=== PATIENT | male | born 1950 | race Caucasian/White ===

== ENCOUNTER 2019-12-31 06:25 | Inpatient (IN) | payer OTHER ==
[~2019-12-31] VITALS: Ht 170.2 cm; Wt 117.0 kg
[~2019-12-31 06:25] MED LIST: ALEVE220 MG PO; APAP500 PO; CALCIUM 600 WI1 EAC2 PO; CELEXA20 MG PO; CENTRUM SILVER1 EAC2 PO; COLACE100 MG PO; GLUCOPHAGE850 MG PO; GLUCOTROL5 MG PO; INVOKANA100 MG PO; JANUVIA 50 MG T50 M1 PO; KEFLEX500 MG PO; KLOR-CON 1010 MEQ PO; LASIX 20 MG TAB20 MG PO; LISINOPRIL20 MG PO; METAMUCIL WAFER1 PKT PO; NORCO 5-325 TA1 EACH PO; NORVASC5 MG PO; ONGLYZA5 MG PO; PERCOCET PO; VITAMINC500 PO; XARELTO10 MG PO
[2020-02-08 13:38] LABS: ABSOLUTE BASOPHILS 0.1 thou/uL (0.0-0.2); ABSOLUTE EOSINOPHILS 0.3 thou/uL (0.0-0.7); ABSOLUTE LYMPHOCYTES 3.3 thou/uL (0.8-5.3); ABSOLUTE MONOCYTES 0.5 thou/uL (0.0-1.2); ABSOLUTE NEUTROPHILS 4.8 thou/uL (1.6-8.1); BASOPHILS 0.7 %; EOSINOPHILS 3.3 %; HEMATOCRIT 40.9 % (42.0-52.0); HEMOGLOBIN 14.3 gm/dL (14.0-18.0); LYMPHOCYTES 37.1 %; MCH 30.3 pg (26.0-34.0); MCV 86.6 fL (80.0-100.0); MONOCYTES 5.4 %; MPV 7.6 fl. (7.2-11.1); NUCLEATED RBCS 0 /100WBC; PLATELET COUNT* 273 thou/uL (150-400); POLYS 53.5 %; RBC 4.72 mil/uL (4.50-6.00); RDW-CV 13.2 % (10.5-14.5)
[2020-02-08 13:46] LABS: APTT 27.9 Seconds (25.0-31.3)
[2020-02-08 13:57] LABS: ALBUMIN 3.5 g/dL (3.4-5.0); CALCIUM 9.1 mg/dL (8.5-10.1); CREATININE 1.4 mg/dL (0.6-1.3); POTASSIUM 4.6 mmol/L (3.5-5.1); TOTAL BILIRUBIN 0.4 mg/dL (<0.1-1.0); TOTAL PROTEIN 6.3 g/dL (6.4-8.2)
--- NOTE | 2020-02-08 14:12 | EKG ---
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 02/08/20 1410 1346 1346 Eddy Ramos MD, [facility] /EPI
[2020-02-08] MEDS ORDERED: GLIPIZIDE 10 MG10 MG PO (15:01)
[2020-02-08] MEDS ORDERED: CELEXA40 MG PO (15:01)
[2020-02-08] MEDS ORDERED: JANUVIA100 MG PO (15:03)
[2020-02-08] MEDS ORDERED: FLOMAX0.4 MG PO (15:04)
[2020-02-08 15:16] LABS: ESR (SEDRATE) 13 mm/hr (0-20)
[2020-02-09 02:08] LABS: GLYCOHEMOGLOBIN (HGB A1C) 6.8 % (4.8-5.6)
[2020-02-11 07:00] VITALS: BP 147/75
[2020-02-11 11:20] VITALS: BP 102/49
[2020-02-11 16:00] VITALS: BP 142/70
--- NOTE | 2020-02-11 16:32 | NUR ---
PATIENT ADMITTED FROM SURGERY THIS AFTERNOON. ALERT AND ORIENTED X 4. REFUSING ANY PAIN MEDICATION STATING HIS PAIN IS UNDER CONTROL. AWAITING PATIENT TO VOID, WILL BLADDER SCAN PER PROTOCOL. IVF AND SCHED ABX INFUSED ORDERED. DRESSING TO RIGHT SHOULDER INTACT, POLAR DYLAN IN PLACE. REG DIET. ORIENTED TO CALL LIGHT. CALL LIGHT WITHIN REACH, WILL CONTINUE TO MONITOR.
[2020-02-12] VITALS: BP 132/64
[2020-02-12 03:45] VITALS: BP 132/66
--- NOTE | 2020-02-12 05:10 | NUR ---
PATIENT SLEPT WELL DURING THIS SHIFT. PT ASSISTED WITH REPOSITIONING. PT WITH RT ARM IN IMMOBILIZER WITH PILLOW ATTACHED. PT DENIES PAIN. PT ABLE TO MOVE FINGERS, GOOD CAP REFIL AND PULSE NOTED. PT USES CALL LIGHT FOR ASSISTANCE TO VOID PER URINAL. PT VOIDS YELLOW URINE. PT WITH ABDOMINAL RASH OPEN TO AIR. PT ON O2 @ 3 LITERS PER NASAL CANNULA AND CAPNO. CAPNO DID NOT ALARM DURING THIS SHIFT. PT WITH FLUIDS/ANTIBIOTIC INFUSING PER DR ORDER. PT HAS DEVIKA HOSE AND FOOT PUMPS. PT WITH POLAR PACK ON RT SHOULDER. DSG C/D/I. FREQUENTLY USED ITEMS AND CALL LIGHT WITHIN REACH. SIDERAILS UPX3 AND BED ALARM ON. WILL CONTINUE TO MONITOR.
[2020-02-12 05:51] LABS: HEMOGLOBIN 11.9 gm/dL (14.0-18.0)
[2020-02-12 06:02] LABS: ALBUMIN 2.8 g/dL (3.4-5.0); ANION GAP 7 mmol/L (7-16); BUN 32 mg/dL (7-18); CALCIUM 8.7 mg/dL (8.5-10.1); CHLORIDE 105 mmol/L (98-107); CHOLESTEROL 145 mg/dL (<200); CO2 27 mmol/L (21-32); CREATININE 1.6 mg/dL (0.6-1.3); GLUCOSE 72 mg/dL (70-99); HDL CHOLESTEROL 37 mg/dL (>40); LDL CHOLESTEROL 94 mg/dL (<100); MAGNESIUM 1.7 mg/dL (1.8-2.4); PHOSPHORUS* 3.2 mg/dL (2.5-4.9); POTASSIUM 4.4 mmol/L (3.5-5.1); SODIUM 139 mmol/L (136-145); TC:HDL 3.9 Ratio (Not establshd); TRIGLYCERIDE 74 mg/dL (<150); VLDL 15 mg/dL (<40)
[2020-02-12 06:03] LABS: SERUM ASSESSMENT CLEAR
[2020-02-12 08:10] VITALS: BP 131/52
[2020-02-12] MEDS ORDERED: ELIQUIS2.5 MG PO (13:38)
[2020-02-12] MEDS ORDERED: PERCOCET PO (13:40)
[2020-02-12 14:53] VITALS: BP 131/52
[2020-02-12 15:50] VITALS: BP 131/52
--- NOTE | 2020-02-12 16:29 | NUR ---
ALL DISCHARGE INSTRUCTION'S EXPLAINED TO PATIENT AND ALL QUESTIONS ANSWERED. PATIENT DISCHARGED VIA WHEELCHAIR TO PRIVATE VEHICLE. HIS WAS HERE TO DRIVE HIM HOME. ALL PERSONAL BELONGINGS SENT WITH PATIENT. HE WAS SENT HOME WITH COPY OF DISCHARGE PAPERWORK AND 2 SCRIPTS.
--- NOTE | 2020-02-14 16:44 | OP ---
[facility] [place] [place] [address] OPERATIVE REPORT Name: RIOSEDGARD Room: [address] IN M.R.#: [id number] Admission: 02/11/20 Attend Phys: Violet Benitez Discharge: 02/12/20 Date of : 50 Report #: [id number] THIS REPORT FOR: //name// cc: Cy Smith MD, Anthony MD ~ THIS REPORT FOR: //name// CC: Cy uDncan DATE OF SERVICE: 02/11/2020 PREOPERATIVE DIAGNOSIS: Severe degenerative joint disease, right shoulder. POSTOPERATIVE DIAGNOSIS: Severe degenerative joint disease, right shoulder. PROCEDURE: Right anatomic total shoulder arthroplasty. IMPLANTS: 1. Tornier Ascend Flex size 4B by 132.5-degree short humeral stem. 2. A 54 mm x 21 mm high eccentricity cobalt chromium humeral head. 3. XL 40 CortiLoc peg glenoid component. SURGEON: Darion Whalen DO PROJECT MANAGER INTERIOR DESIGN: Reinaldo Blanc DO/Yadira Mendenhall DO ANESTHESIA: General plus interscalene nerve block. FLUIDS: Crystalloid. ESTIMATED BLOOD LOSS: 150 mL. DRAINS: None. SPECIMENS: None. COMPLICATIONS: None. CONDITION: Stable. DISPOSITION: PACU to Med/Surg floor. ANTIBIOTICS: 2 grams [address]cef [address] [facility] [place] [place] [address] OPERATIVE REPORT Name: EDGARD RIOS Room: [address] IN [facility]#: [id number] Admission: 02/11/20 Attend Phys: Violet Benitez Discharge: 02/12/20 Date of : 50 Report #: [id number] INDICATIONS: The patient is a pleasant 70-year-old diabetic, male who has severe degenerative joint disease to his right shoulder, performed a total shoulder arthroplasty on his left side about 4 or 5 years ago, which he has done very well with. He is now ready to proceed with the same procedure on the right. We discussed risks, benefits and alternatives of this with him in detail. He has verbalized understanding and wished to proceed. FINDINGS: We evaluated the shoulder intraoperatively. He is noted to have advanced degenerative joint disease with complete loss of articular cartilage eburnated and inflamed-looking bone surrounding intense synovitis with a notable joint effusion. His rotator cuff is intact and looks appropriate. Bone quality is a little soft. His glenoid was concentrically worn centrally without any notable defects. DESCRIPTION OF PROCEDURE: The patient was brought to the operative suite and placed in supine position on the OR table, given the benefit of a general anesthetic. He was then positioned into a modified beach chair position utilizing a T-max bed attachment. All bony prominences were well padded. His head was secured with a foam mask. The right upper extremity was prepped and draped freely in usual sterile fashion with a chlorhexidine scrub, alcohol rinse and ChloraPrep paint. A timeout was utilized to ensure proper operative patient, procedure, and extremity. Once antibiotic administration was verified, we began making a standard 10 cm incision over the deltopectoral interval starting just lateral to the coracoid process. We proceeded with a standard deltopectoral approach, identifying the cephalic vein and mobilizing it laterally with the deltoid. We digitally released subdeltoid adhesions and placed a Garvin deltoid retractor in the subdeltoid space. We freed up the conjoined tendon and retracted it medially. We then had good exposure of the subscapularis which we split longitudinally about 1 cm medial to the lesser tuberosity. We retracted into the tendon for later repair. We then performed a biceps tenotomy and allowed it to retract. We then released inferior capsular tissue of the humeral head and neck and maximally externally rotated the arm. At this point, we had good exposure of the humeral head. We were able to dislocate it into a surgical wound. We then performed a humeral head osteotomy with a standard saw blade. This was performed at the anatomic neck. We then prepared our humerus with various reamers and broaches taking up to a size-4, which fit very snugly and had good rotational stability. At this point, we turned our attention to glenoid preparation. We circumferentially removed the labrum and placed retractors both anteriorly and posteriorly on the glenoid. We had good exposure of the glenoid. We then placed a central guidewire in the glenoid through the guide, which was set flush in the glenoid. We then reamed it appropriately and drilled it for the pegged glenoid. At this point, we cemented our final component into place cementing only the peripheral pegs and bone grafting the CortiLoc peg centrally. This had a very nice snug fit. At this point, we turned our attention back to the humerus where we used a calcar reamer and trialed with various humeral heads to determine the proper size and [address] [address] OPERATIVE REPORT Name: EDGARD RIOS Room: [address] [facility] IN M.R.#: [id number] Admission: 02/11/20 Attend Phys: Violet Benitez Discharge: 02/12/20 Date of : 50 Report #: [id number] eccentricity to get complete coverage of the metaphyseal component of the bone. Utilizing the 54 x 21 mm high eccentricity head, this gave us an excellent fit with proper fill and about a 50% shuck. He has full range of motion with this. We subsequently elected to implant the final construct. It was prepared on the back table replicating our trial components and pounding the humeral head onto the stem to engage the Mercado taper. We then implanted the final stem and head in standard fashion. Final reduction was performed. Nice construct was appreciated. We then repaired the subscapularis in end-to-end style repair to the tendon of stump. We did drill 1-2 bone holes for added security, placing multiple #2 FiberWire sutures across this repair site. Once this was performed satisfactorily, we performed a final irrigation and closed the interval with #1 Vicryl loosely, 2-0 Vicryl was used subcuticularly with a running 3-0 Monocryl suture applied subcuticular as well. Dermabond was applied to the skin. A sterile dressing was applied. The patient was transferred to PACU in stable condition. <ELECTRONICALLY SIGNED> By: Javier Oconnor DO 02/14/20 1644 1020 [id number] Whalen DO /emilio
== END 2020-02-12 15:50 | disposition home health service (06) | DRG 483 ==
LOC: M.PRE 06:25 → M.3W 02-11 06:07 → M.TBA 02-11 06:07 → M.PRE 02-11 06:15 → M.3W 02-11 12:11 → M.PRE 02-11 13:44 → M.3W 02-12 15:50
PROVIDERS: Family Medicine; Orthopaedic Surgery; ADMIT Internal Medicine
PROC: 0RRJ0JZ Replacement of Right Shoulder Joint with Synthetic Substitute, Open Approach (ICD-10-PCS; principal; 2020-02-11)
PROC: 0LS30ZZ Reposition Right Upper Arm Tendon, Open Approach (ICD-10-PCS; principal; 2020-02-11)
PROC: 3E0T3BZ Introduction of Anesthetic Agent into Peripheral Nerves and Plexi, Percutaneous Approach (ICD-10-PCS; 2020-02-11)
DX: M19.011 Primary osteoarthritis, right shoulder (principal); I10 Essential (primary) hypertension; E11.9 Type 2 diabetes mellitus without complications; F41.9 Anxiety disorder, unspecified; F32.9 Major depressive disorder, single episode, unspecified; Z20.828 Contact with and (suspected) exposure to other viral communicable diseases; Z79.899 Other long term (current) drug therapy; Z79.84 Long term (current) use of oral hypoglycemic drugs; Z87.891 Personal history of nicotine dependence